=== PATIENT | male | born 1955 | race Caucasian/White ===

== ENCOUNTER 2020-02-24 20:14 | Inpatient (IN) | payer OTHER ==
[~2020-02-24] VITALS: Ht 188 cm; Wt 152.5 kg
[2020-02-24 20:43] LABS: Basophils # (auto) 0.1 10 ^3/uL (0-0.2); Basophils % (auto) 0.7 % (0.0-2.0); Eosinophils # (auto) 0 10 ^3/uL (0-0.8); Eosinophils % (auto) 0.1 % (0.0-7.0); Hematocrit 33.9 % (41.0-53.0); Hemoglobin 10.8 g/dL (13.5-17.5); Lymphocytes # (auto) 0.8 10 ^3/uL (0.4-5.4); Mean Corpuscular Hgb Conc. 31.8 g/dL (32.0-36.0); Monocytes # (auto) 0.6 10 ^3/uL (0-1.3); Monocytes % (auto) 4.7 % (0.0-12.0); Neutrophils # (auto) 11.7 10 ^3/uL (1.6-8.6); Neutrophils % (auto) 88.5 % (37.0-80.0); Nucleated Red Blood Cells % 0.1 %; Platelet Count (auto) 285 10^3/uL (140-450); Red Blood Cells 3.85 10^6/uL (4.5-5.90); Red Cell Distribution Width 17.2 % (11.8-14.3); White Blood Cell 13.1 10^3/uL (4.4-10.8)
[2020-02-24] MEDS ORDERED: SODIUM CHLORIDE 0.9% 2,000 ML IV ONE (20:45)
[2020-02-24 21:02] LABS: Albumin 1.8 g/dL (3.4-5.0); Calcium 8.1 mg/dL (8.5-10.1); Magnesium 1.5 mg/dL (1.6-2.6)
[2020-02-24 21:03] LABS: INR 1.18 (0.9-1.15); Partial Thromboplastin Time 29.1 sec (23.64-32.05)
[2020-02-24 21:06] LABS: BUN/Creatinine Ratio 27.8; Bilirubin, Total 0.3 mg/dL (0.2-1.0)
[2020-02-24] MEDS ORDERED: InsuLIN REG 1unit/0.01ml Soln (100units/ml) IV ONE ×2 (22:45→23:30)
[2020-02-24 23:02] LABS: Urine Amorphous Crystal FEW /hpf (None Seen); Urine Bacteria FEW /hpf (None Seen); Urine Blood 2+ /uL (Negative); Urine Hyaline Cast MANY /lpf (0 - 2); Urine Mucus FEW (None Seen); Urine Specific Gravity 1.013 (1.001-1.035); Urine WBC 3 /hpf (0 - 3)
[2020-02-24] MEDS ORDERED: AZITHROMYCIN 500MG/ 250ML 250 ML IV ONE (23:15)
[2020-02-24] MEDS: MAGNESIUM SULFATE 1GM/100ML 100 ML IV SCH ×2 (23:22→23:45)
[2020-02-24] MEDS ORDERED: SODIUM CHLORIDE 0.9% 1,000 ML IV SCH (23:54)
[2020-02-25] MEDS ORDERED: NITROGLYCERIN 0.4 MG SL TAB SL PRN
[2020-02-25] MEDS ORDERED: MORPHINE SULF INJ 2 MG/ML SYRINGE 1ML IV PRN
[2020-02-25] MEDS ORDERED: ACETAMINOPHEN 500 MG TAB PO PRN
[2020-02-25 01:00] VITALS: BP 148/87
--- NOTE | 2020-02-25 01:00 | NUR ---
Telemetry admit from ER BL[facility]DR[facility] admitted to Telemetry unit. Patient oriented to JOSE ANGEL LOPEZ RN primary RN, unit, room, bed, and unit policies regarding patient care and visiting hours. Patient now on continuous telemetry monitoring, tele box # 3 and telemetry reading on arrival to unit is SINUS TACHYCARDIA AT 109 BEATS PER MINUTE. Patient placed on bedside oxygen AT 2 LITERS VIA NASAL CANNULA, weighed by bedscale and encouraged to call if they need something. All questions and concerns addressed, patient verbalized understanding. Bed in lowest locked position, side rails up x2, call light within reach. monitor car operator on patient with all leads and connections verified in the correct position. Instructed on POC and to call for assist PRN, will continue to monitor for changes Q1hr and PRN. COVID [address] Will use correct PPE throughout shift.
[2020-02-25 01:08] VITALS: BP 154/77
[2020-02-25] MEDS: InsuLIN REG 1unit/0.01ml Soln (100units/ml) SC SCH ×4 (01:09→12:16)
--- NOTE | 2020-02-25 01:35 | NUR ---
Patient unable to recall names and dosages of home medications. 's phone number provided, will attempt to call her later in AM. Will continue care.
--- NOTE | 2020-02-25 01:35 | NUR ---
Wound care photos taken of patient's left medial foot and posterior right ankle. Patient tolerated well. Wound care forms filled out and placed in box for wound care nurse. Abdominal pads placed on left foot wound and wrapped with kerlix. Patient tolerated well. Will continue care. Addendum: 02/25/20 at 0411 by JOSE ANGEL LOPEZ RN RN ADDITION: PER PATIENT HE "SCRAPED [HIS] FOOT AGAINST THE SIDE OF [HIS] WHEELCHAIR A FEW WEEKS AGO".
[2020-02-25] MEDS: MAGNESIUM SULFATE 1GM/100ML 100 ML IV SCH ×3 (02:09→16:50)
[2020-02-25 04:00] VITALS: BP 104/55
[2020-02-25] MEDS: ACCU-CHEK COMFORT CURVE STRIP VI SCH ×6 (05:39→21:55)
[2020-02-25] MEDS ORDERED: ALBUTEROL SULF HFA 90MCG INH 200DOSE IN SCH (06:00)
[2020-02-25 06:28] LABS: Basophils # (auto) 0.1 10 ^3/uL (0-0.2); Basophils % (auto) 0.5 % (0.0-2.0); Eosinophils # (auto) 0 10 ^3/uL (0-0.8); Eosinophils % (auto) 0.2 % (0.0-7.0); Hemoglobin 9.9 g/dL (13.5-17.5); Lymphocytes # (auto) 0.9 10 ^3/uL (0.4-5.4); Lymphocytes % (auto) 7.6 % (10.0-50.0); Mean Corpuscular Hemoglobin 28.3 pg (28.0-32.0); Mean Corpuscular Hgb Conc. 31.8 g/dL (32.0-36.0); Monocytes # (auto) 0.7 10 ^3/uL (0-1.3); Monocytes % (auto) 5.9 % (0.0-12.0); Neutrophils # (auto) 10.6 10 ^3/uL (1.6-8.6); Neutrophils % (auto) 85.8 % (37.0-80.0); Platelet Count (auto) 263 10^3/uL (140-450); Red Blood Cells 3.48 10^6/uL (4.5-5.90); Red Cell Distribution Width 17.2 % (11.8-14.3); White Blood Cell 12.3 10^3/uL (4.4-10.8)
[2020-02-25] MEDS: ALBUTEROL SULF HFA 90MCG INH 200DOSE IN SCH ×2 (06:45→14:20)
--- NOTE | 2020-02-25 06:45 | NUR ---
Respiratory note: UNABLE TO ADMINISTER PT ALBUTEROL (90MCG) MDI TX, DUE TO MED NOT BEING AVAILABLE BY PHARMACY. RN AWARE.
--- NOTE | 2020-02-25 06:45 | NUR ---
No MDI at bedside for patient, RT and pharmacy made aware. Pharmacy checking to see if medication in stock as MDI, if not medication will need to be administered via nebulizer. Pharmacy will call back once they verify if medication is in stock. Will continue care.
[2020-02-25 06:48] LABS: Albumin 1.6 g/dL (3.4-5.0); Calcium 7.7 mg/dL (8.5-10.1); Potassium 3.5 mmol/L (3.5-5.1)
[2020-02-25 06:51] LABS: BUN/Creatinine Ratio 25.6; Bilirubin, Total 0.3 mg/dL (0.2-1.0); Total Protein 7.2 g/dL (6.4-8.2)
--- NOTE | 2020-02-25 07:00 | NUR ---
Kia called, home medications obtained and update provided after password confirmed. Will update chart and continue care.
--- NOTE | 2020-02-25 07:10 | NUR ---
Closing Note Patient lying in bed, eyes closed, respirations even and unlabored, appears asleep. No s/s of distress. Bed in lowest locked position, side rails up x2, call light within reach. Will endorse care to dayshift RN.
[2020-02-25] MEDS ORDERED: INSLISPI (07:21)
[2020-02-25] MEDS ORDERED: INSUINJ2 (07:21)
[2020-02-25] MEDS ORDERED: LISI40TA PO ×2 (07:21→07:28)
[2020-02-25] MEDS ORDERED: ALLO100T PO (07:28)
[2020-02-25] MEDS ORDERED: HYDR25TA4 PO (07:28)
[2020-02-25] MEDS ORDERED: CYCL1TAB18 PO (07:28)
[2020-02-25] MEDS ORDERED: ATOR20TA PO (07:28)
[2020-02-25] MEDS ORDERED: CARB100C3 PO (07:28)
[2020-02-25] MEDS ORDERED: ACET-1156 PO (07:29)
[2020-02-25] MEDS ORDERED: ALBUAER3 IN (07:29)
[2020-02-25] MEDS ORDERED: OMEGCAP2 (07:30)
[2020-02-25] MEDS ORDERED: OMEG500C PO (07:31)
[2020-02-25] MEDS ORDERED: ASCORBIC ACID 1,000 MG TAB PO SCH (10:00)
[2020-02-25] MEDS ORDERED: ENOXAPARIN SOD 40 MG/0.4 ML SYRINGE SC SCH (10:00)
[2020-02-25] MEDS ORDERED: ZINC SULFATE 220mg CAP or TAB PO SCH (10:00)
[2020-02-25] MEDS ORDERED: AZITHROMYCIN 500 MG TAB PO SCH (10:00)
[2020-02-25] MEDS ORDERED: CHOLECALCIFEROL (VITD3) 1,000IU=25mCg TAB PO SCH (10:00)
[2020-02-25] MEDS ORDERED: cefTRIAXone 1GM/50ML D5W 50 ML IV SCH (10:00)
[2020-02-25] MEDS ORDERED: LOSARTAN POTASSIUM 50 MG TAB PO SCH (10:00)
--- NOTE | 2020-02-25 11:20 | NUR ---
WOUND PHOTO: WOUND PHOTOS TAKEN OF MEDIAL, RIGHT, AND LEFT SACRUM WOUNDS. OPTIFOAM DRESSING APPLIED. WOUND PHOTO PAPER LEFT IN CORRECT PLACEMENT.
--- NOTE | 2020-02-25 12:30 | NUR ---
ASSUMED CARE RECEIVED REPORT FROM MARY PINK/GHADA. PATIENT IN BED, WITH C/O SOB, SAT PATIENT UP, SOB RELIEVED. PATIENT DENIES PAIN. WILL CONTINUE TO MONITOR.
--- NOTE | 2020-02-25 12:45 | NUR ---
REPORT GIVEN TO JOESPH SOUZA. PATIENT TRANSFERRED TO ROOM 250A.
--- NOTE | 2020-02-25 14:20 | NUR ---
Respiratory note: 1 PUFFS (90MCG) ALBUTEROL GIVEN VIA MDI WITH CHAMBER, WITH NO ADVERSE EFFECTS NOTED. SPO2 93% RA, HR 111, RR 18, BS CLEAR/DIMINISHED BILATERALLY. WILL CONTINUE TO MONITOR PT. CHARTING COMPLETE FROM OUTSIDE OF ROOM.
--- NOTE | 2020-02-25 14:38 | NUR ---
I spoke with Dr. Leon regarding the plan of care for this patient, I let her know that family is okay with transfer to [facility]. Per Dr. Leon she will place transfer order.
[2020-02-25] MEDS ORDERED: SODIUM CHLORIDE 0.9% 1,000 ML IV SCH (14:45)
[2020-02-25] MEDS ORDERED: hydrALAZINE HCL 20 MG/ML VL IV PRN (14:45)
[2020-02-25] MEDS ORDERED: metroNIDAZOLE 500MG/100ML 100 ML IV ONE (14:45)
[2020-02-25] MEDS ORDERED: ALBUTEROL SULF 2.5 MG/0.5ML(0.5%) NEB SOLN NEB PRN (14:45)
[2020-02-25] MEDS ORDERED: IPRATROPIUM BROM 0.5 MG/2.5ML INH SOL NEB PRN (14:45)
[2020-02-25] MEDS ORDERED: DEXTROSE (50%) 50ML SYRG IV PRN ×2 (14:45)
--- NOTE | 2020-02-25 15:01 | NUR ---
1500 02/25/20 I faxed transfer order and Notice Regarding Post Stabilization to [facility]-document scanned into [employer]. I also faxed negative COVID-19 test result to [facility].
--- NOTE | 2020-02-25 16:44 | NUR ---
1640 02/25/20 I contacted [facility] and spoke with payment analyst Shannan. Per Shannan she did receive the transfer order and negative COVID-19 test result, she will have correctional case manager Ana work on the transfer and will call nurse's station when a bed becomes available.
--- NOTE | 2020-02-25 16:47 | NUR ---
assessment Patient is a 64 year old male. Per patients Farnaz prior to admission patient lived home with her and functioned with her assistance. Patient has a wheelchair for home use. Patients PCP is Dr Enriquez. Per Kia she called 911 due to patient not eating and having a fever. Patients Covid 19 is negative. Patient and Farnaz agree to transfer to [place]. If patient does not transfer he will need home health for PT and a fww. Kia verbalized understanding and agreed to discharge plan of transfer or home with home health. Addendum: 02/25/20 at 1650 by Yasemin WILLIAMSON Amended: Links added.
[2020-02-25 17:00] VITALS: BP 147/73
[2020-02-25] MEDS ORDERED: InsuLIN REG 1unit/0.01ml Soln (100units/ml) SC SCH ×2 (17:00→22:00)
--- NOTE | 2020-02-25 17:00 | NUR ---
PATIENT C/O PAIN PATIENT C/O PAIN 6/10, WITHOUT PAIN MEDICATION WITH MODERATE SCALE ON BOARD. CALLED HOSPITAL LIST FOR OPTIONS.
--- NOTE | 2020-02-25 17:13 | NUR ---
MEDICATION ORDERED DIRECTOR OF [facility] C[facility] ORDERED 50MG ULTRAM Q6H/PRN. WILL CONTINUE TO MONITOR.
[2020-02-25] MEDS ORDERED: traMADol HCL 50 MG TAB PO PRN (17:15)
--- NOTE | 2020-02-25 17:26 | NUR ---
[facility] CASE MANAGEMENT [facility], CASE MANAGEMENT FROM [facility] FOLLOWING UP WITH PATIENTS LABS, MEDICATIONS, AND PLANNING FOR TRANSFER. TRANSFERRING THIS AFTERNOON TO EARLY EVENING.
[2020-02-25 18:07] LABS: % Iron Saturation 6.7 % (20-55)
--- NOTE | 2020-02-25 18:18 | NUR ---
WOUND CARE NOTE: IN TO SEE PATIENT AT THIS TIME FOR WOUNDS FOUND UPON ADMISSION. WOUND PHOTOS AND WOUND CONSULT PLACED AT THAT TIME BY BEDSIDE NURSE FOR REFERENCE. PATIENT IS SHORTLY BEING TRANSFERRED TO [place] FOR INSURANCE PURPOSES PER BEDSIDE NURSE. Addendum: 02/25/20 at 1820 by Evelyn Schwab RN Amended: Links added.
--- NOTE | 2020-02-25 20:08 | NUR ---
Opening Shift Note Assumed care of patient after receiving report from Cecile, RN. Patient awake and alert. No S/S of distress/SOB or pain. Call light within reach with bed in lowest position x2 side rails. Instructed on POC and to call for assist PRN, will continue to monitor for changes Q1hr and PRN.
--- NOTE | 2020-02-25 20:10 | NUR ---
Respiratory note: PT ASSESSED FOR PRN MED NEB TX. HR 99, RR 18, PO2 96% ON RA. NO SIGNS OF ANY RESPIRATORY DISTRESS NOTED. ADVISED PT TO CALL IF TX IS NEEDED.
--- NOTE | 2020-02-25 20:28 | NUR ---
Transfer info Spoke with [facility] regarding transfer to [facility]. Accepting doctor is Dr. Charu Dominguez, room 324. Report to be given at [phone]. cage/vault supervisor time is scheduled for 2200.
--- NOTE | 2020-02-25 21:15 | NUR ---
Elevated BP BP reading of 157/76 and HR of 110. PRN Apresoline for SBP >150 given. Will continue to monitor and reassess.
--- NOTE | 2020-02-25 21:27 | NUR ---
Report given Report given to receiving nurse, Tamika.
--- NOTE | 2020-02-25 21:33 | NUR ---
Family updated Spoke with Kia, of patient, with update on plan of care and plan to transfer patient to [facility].
[2020-02-25 22:00] VITALS: BP 152/68
[2020-02-25] MEDS ORDERED: metroNIDAZOLE 500MG/100ML 100 ML IV SCH (22:00)
[2020-02-25] MEDS ORDERED: PANTOPRAZOLE 40 MG/10 ML VIAL INJ IV SCH (22:00)
[2020-02-25] MEDS ORDERED: PANTOPRAZOLE 40 MG TAB PO SCH (22:00)
--- NOTE | 2020-02-25 22:15 | NUR ---
BP reassessed BP reassessed 139/78 and HR 109. Will continue to monitor.
--- NOTE | 2020-02-25 23:59 | NUR ---
[facility] hot die picker Report given to [facility] at bedside to transfer patient. Tele box removed, cleaned, and sent. ID band removed. Eid emptied with 850 ml of clear yellow urine.
== END 2020-02-25 23:55 | disposition short-term general hospital (02) | DRG 871 ==
LOC: EDBD 20:14 → ER 20:14 → TELE 20:15 → EAST 02-25 01:00 → TELE-EAST 02-25 05:54
PROVIDERS: ADMIT Hospitalist; ATTEND Internal Medicine
DX: A41.9 Sepsis, unspecified organism (principal); N17.0 Acute kidney failure with tubular necrosis; D63.1 Anemia in chronic kidney disease; E11.22 Type 2 diabetes mellitus with diabetic chronic kidney disease; E11.65 Type 2 diabetes mellitus with hyperglycemia; E66.9 Obesity, unspecified; E78.5 Hyperlipidemia, unspecified; E83.42 Hypomagnesemia; I12.9 Hypertensive chronic kidney disease with stage 1 through stage 4 chronic kidney disease, or unspecified chronic kidney disease; Z85.038 Personal history of other malignant neoplasm of large intestine; K52.9 Noninfective gastroenteritis and colitis, unspecified; N18.9 Chronic kidney disease, unspecified; M10.9 Gout, unspecified; Z03.818 Encounter for observation for suspected exposure to other biological agents ruled out
CPT/HCPCS: 36415; 71045; 74176; 76775; 80053; 81001; 82306; 82728; 82962; 83036; 83540; 83550; 83605; 83735; 83880; 83970; 84484; 85025; 85610; 85730; 86141; 87040; 87070; 87086; 87804; 87880; 94640; G0378; J0696; J1815; J3490

== ENCOUNTER 2020-06-15 11:24 | Inpatient (IN) | payer OTHER ==
[~2020-06-15] VITALS: Ht 182.9 cm; Wt 126.0 kg
[~2020-06-15 11:24] MED LIST: ACET-1156 PO; ALBUAER3 IN; ALLO100T PO; ATOR20TA PO; CARB100C3 PO; CYCL10TA6 PO; HYDR25TA4 PO; INSLISPI; INSUINJ2; LISI40TA11 PO; OMEG500C PO
[2020-06-15] MEDS ORDERED: SODIUM CHLORIDE 0.9% 1,000 ML IV ONE ×2 (11:30)
[2020-06-15] MEDS ORDERED: PIPERACILLIN-TAZOB 3.375GM 100 ML IV ONE (12:00)
[2020-06-15 13:31] LABS: Basophils # (auto) 0.1 10 ^3/uL (0-0.2); Basophils % (auto) 0.8 % (0.0-2.0); Eosinophils # (auto) 0.2 10 ^3/uL (0-0.8); Eosinophils % (auto) 1.5 % (0.0-7.0); Hematocrit 37.5 % (41.0-53.0); Lymphocytes # (auto) 2.5 10 ^3/uL (0.4-5.4); Lymphocytes % (auto) 21.6 % (10.0-50.0); Mean Corpuscular Hemoglobin 27.1 pg (28.0-32.0); Mean Corpuscular Hgb Conc. 32.1 g/dL (32.0-36.0); Mean Corpuscular Volume 84.2 fL (80.0-100.0); Monocytes # (auto) 0.7 10 ^3/uL (0-1.3); Neutrophils % (auto) 70.1 % (37.0-80.0); Nucleated Red Blood Cells % 0.1 %; Platelet Count (auto) 279 10^3/uL (140-450); Red Blood Cells 4.45 10^6/uL (4.5-5.90); Red Cell Distribution Width 16.8 % (11.8-14.3); White Blood Cell 11.5 10^3/uL (4.4-10.8)
[2020-06-15 13:46] LABS: INR 1.08 (0.9-1.15); Partial Thromboplastin Time 27.2 sec (23.0-31.2)
[2020-06-15 13:51] LABS: Albumin 2.6 g/dL (3.4-5.0); Calcium 8.7 mg/dL (8.5-10.1)
[2020-06-15 13:54] LABS: Lactic Acid w/Reflex 2.8 mmol/L (0.4-2.0)
[2020-06-15 13:56] LABS: BUN/Creatinine Ratio 15.1; Bilirubin, Total 0.2 mg/dL (0.2-1.0); Total Protein 7.9 g/dL (6.4-8.2)
[2020-06-15] MEDS ORDERED: SOD CHL 0.9%/ KCL 40MEQ 1,000 ML IV ONE (14:15)
[2020-06-15 14:16] LABS: Potassium 2.8 mmol/L (3.5-5.1)
[2020-06-15] MEDS ORDERED: ENOXAPARIN SOD 150 MG/1 ML SYRINGE SC ONE (15:00)
[2020-06-15] MEDS ORDERED: NITROGLYCERIN 0.4 MG SL TAB SL PRN (15:15)
[2020-06-15] MEDS ORDERED: MORPHINE SULF INJ 2 MG/ML SYRINGE 1ML IV PRN (15:15)
[2020-06-15] MEDS ORDERED: KETOROLAC TROMETH 30 MG/ML 1ML VIAL IV ONE (16:00)
[2020-06-15] MEDS ORDERED: VANCOMYCIN PER PHARMACY 0 MG IV SCH (16:00)
[2020-06-15 16:20] LABS: Urine Bacteria MOD /hpf (None Seen); Urine Blood 2+ /uL (Negative); Urine Mucus FEW (None Seen); Urine Specific Gravity 1.016 (1.001-1.035); Urine WBC 200 /hpf (0 - 3)
[2020-06-15] MEDS ORDERED: VANCOMYCIN 1GM/250ML 250 ML IV SCH (17:00)
[2020-06-15 20:15] VITALS: BP 148/72
--- NOTE | 2020-06-15 20:15 | NUR ---
Telemetry admit from ER [facility] admitted to Telemetry unit after SBAR received. Patient oriented to Dolly saldivar RN, unit, room, bed, and unit policies regarding patient care and visiting hours. Patient now on continuous telemetry monitoring, tele box # 70 and telemetry reading on arrival to unit is SR 95. Patient placed on bedside oxygen, weighed by bed scale and encouraged to call if they need something. All questions and concerns addressed, patient verbalized understanding. Note: Came per gourney, awake, alert x 2-3, placed in the bed comfortably, vital signs checked.
[2020-06-15 21:00] VITALS: BP 148/72
[2020-06-15] MEDS ORDERED: ACETAMINOPHEN 325 MG TAB PO PRN (21:00)
[2020-06-15] MEDS ORDERED: LORazepam 2MG/ML-1ML VIAL IV PRN (21:00)
[2020-06-15] MEDS ORDERED: MORPHINE SULFATE 4 MG/ML SYR/VIAL IV PRN (21:00)
[2020-06-15] MEDS ORDERED: POTASSIUM CHL 20MEQ/100ML 100 ML IV ONE (21:00)
[2020-06-15] MEDS ORDERED: VANCOMYCIN PER PHARMACY 1,000 MG IV SCH (21:00)
[2020-06-15] MEDS ORDERED: FUROSEMIDE 40 MG/4 ML VIAL IV ONE (21:15)
[2020-06-15] MEDS ORDERED: LISINOPRIL 20 MG TAB PO ONE (21:15)
[2020-06-15] MEDS ORDERED: DEXTROSE (50%) 50ML SYRG IV PRN (21:15)
[2020-06-15] MEDS: ATORVASTATIN 20 MG TAB PO SCH (21:50)
[2020-06-15] MEDS: FAMOTIDINE (10MG/ML) 2ML VL IV SCH (22:08)
[2020-06-15] MEDS: SOD CHL 0.9%/ KCL 20MEQ 1,000 ML IV SCH ×2 (22:11→23:23)
[2020-06-15] MEDS: METOPROLOL TARTRATE 25 MG TAB PO SCH (22:11)
[2020-06-15 22:33] LABS: INR 1.11 (0.9-1.15); Partial Thromboplastin Time 34.7 sec (23.0-31.2)
[2020-06-15] MEDS: HYDROCORTISONE SOD SUCC 100 MG/2ML INJ VIAL IV SCH (23:20)
[2020-06-15] MEDS: PIPERACILLIN-TAZOB 3.375GM 100 ML IV SCH (23:21)
[2020-06-15] MEDS: ACCU-CHEK COMFORT CURVE STRIP VI SCH (23:53)
[2020-06-15] MEDS: InsuLIN REG 1unit/0.01ml Soln (100units/ml) SC SCH (23:53)
[2020-06-16 05:00] VITALS: BP 141/73
[2020-06-16] MEDS ORDERED: VANCOMYCIN 1GM/250ML 250 ML IV ONE (05:00)
[2020-06-16] MEDS: HYDROCORTISONE SOD SUCC 100 MG/2ML INJ VIAL IV SCH (05:32)
[2020-06-16] MEDS: ACCU-CHEK COMFORT CURVE STRIP VI SCH ×3 (05:33→18:00)
[2020-06-16] MEDS ORDERED: FUROSEMIDE 40 MG/4 ML VIAL IV SCH (06:00)
[2020-06-16] MEDS: PIPERACILLIN-TAZOB 3.375GM 100 ML IV SCH ×3 (06:05→18:00)
[2020-06-16] MEDS: InsuLIN REG 1unit/0.01ml Soln (100units/ml) SC SCH ×3 (06:08→18:00)
[2020-06-16 06:27] LABS: Basophils # (auto) 0 10 ^3/uL (0-0.2); Basophils % (auto) 0.6 % (0.0-2.0); Eosinophils # (auto) 0.1 10 ^3/uL (0-0.8); Eosinophils % (auto) 1.2 % (0.0-7.0); Hematocrit 30.6 % (41.0-53.0); Hemoglobin 9.9 g/dL (13.5-17.5); Lymphocytes # (auto) 1.5 10 ^3/uL (0.4-5.4); Mean Corpuscular Hemoglobin 27.9 pg (28.0-32.0); Mean Corpuscular Hgb Conc. 32.4 g/dL (32.0-36.0); Monocytes # (auto) 0.4 10 ^3/uL (0-1.3); Neutrophils % (auto) 71.2 % (37.0-80.0); Platelet Count (auto) 200 10^3/uL (140-450); Red Blood Cells 3.56 10^6/uL (4.5-5.90); Red Cell Distribution Width 16.8 % (11.8-14.3)
[2020-06-16 06:34] LABS: INR 1.07 (0.9-1.15); Partial Thromboplastin Time 30.3 sec (23.0-31.2)
[2020-06-16 06:43] LABS: Potassium 3.5 mmol/L (3.5-5.1)
[2020-06-16 06:54] LABS: Albumin 2.2 g/dL (3.4-5.0); BUN/Creatinine Ratio 16.7; Bilirubin, Total 0.4 mg/dL (0.2-1.0); Calcium 7.4 mg/dL (8.5-10.1); Magnesium 1.7 mg/dL (1.6-2.6); Phosphorus 3.7 mg/dL (2.5-4.90); Total Protein 6.6 g/dL (6.4-8.2)
--- NOTE | 2020-06-16 07:43 | NUR ---
Care report given to Yeny Escobar , patient is resting quietly, need someone to talk to for being lonely at time, crying sometimes if telling his story.
--- NOTE | 2020-06-16 07:49 | NUR ---
Told day shift R.n. to swab the nose of the patient for being discharge in the hospital less than 30 days.
[2020-06-16 08:00] VITALS: BP 154/85
[2020-06-16 09:00] VITALS: BP 154/85
[2020-06-16] MEDS: ENOXAPARIN SOD 40 MG/0.4 ML SYRINGE SC SCH (10:06)
[2020-06-16] MEDS: LISINOPRIL 20 MG TAB PO SCH (10:07)
[2020-06-16] MEDS: METOPROLOL TARTRATE 25 MG TAB PO SCH ×2 (10:07→22:06)
[2020-06-16] MEDS: ASPirin 81 mg TAB PO SCH (10:08)
[2020-06-16] MEDS: FAMOTIDINE (10MG/ML) 2ML VL IV SCH ×2 (10:09→22:05)
--- NOTE | 2020-06-16 10:20 | NUR ---
Turned patient to his right side with help fro EVI Martin. Patient tolerated well.
--- NOTE | 2020-06-16 10:24 | NUR ---
WOUND CARE NOTE: Wound care in to see patient per wound care request regarding skin integrity issue that are noted present on admission. Bedside nurse took photograph of patient's skin issue upon admission for reference. Patient is 65 y/o male with admitting diagnosis of Altered Mentation, Acute Metabolic Encephalopathy. Patient is resting in bed in Rm. 284B. Patient is awake, alert and follow direction. He's able to communicate needs. He need assistance in turning and repositioning and his Nate score is 14. Skin assessment done with the assistance of patient's nurse, JOESPH Escobar. Noted patient's left lateral foot has 1.0x2.0cm dry, calloused, scabbed DFU. Surrounding skin is pink, clean and dry,left open to air. Patient's medial sacrum at intragluteal fold has mild moisture associated dermatitis. Ileana care given and applied Z Guard cream. No other wound noted, no pressure injury noted. Repositioned patient for comfort facing his Rt side, redistributed pressure points with pillows and elevated BLE on pillows. Patient tolerated well, nurse's aide at bedside. RECOMMENDATION: Nursing to continue with BID/PRN cleaning and application of Barrier cream to sacral,buttocks and perineum as preventative, frequent turning and repositioning schedule as condition permits, redistribute pressure points with pillows, elevate heels on pillows, continue monitoring by wound care while Nate score is <18. Addendum: 06/16/20 at 1140 by Chelsea Carrasco RN Amended: Links added.
--- NOTE | 2020-06-16 10:30 | NUR ---
Per patient, he has not been in the hospital the last 30days. patient states, "he has not been anywhere"
--- NOTE | 2020-06-16 10:34 | NUR ---
Wound care nurse at bedside.
--- NOTE | 2020-06-16 12:00 | NUR ---
Dr. Leon at bedside.
--- NOTE | 2020-06-16 12:16 | NUR ---
NOK Updated on patient's POC after password was obtained.
--- NOTE | 2020-06-16 15:06 | NUR ---
assessment Patient is a 64 year old male who is confused. Per patients Kia prior to admission patient lived home with her and functioned with her assistance. Patient has a wheelchair for home use. Patients PCP is Dr Enriquez at [facility]. Per Kia she called 911 due to patient being confused and asking for his sister Barby. Kia agrees to transfer to [facility]. If patient does not transfer he will need home health on discharge. I informed Kia of consult about patient living with his mother. Per Kia she is patients for 36 years. Patients mother has been for the past 5 years. I informed Kia that EMS stated the floor was soaked with urine and feces. Kia stated she has an old dog who sometime poops on the floor, but her carpet is not soaked with urine or feces. Kia stated she is more than capable of caring for patient. Kia verbalized understanding and agreed to discharge plan of transfer or home with home health. Addendum: 06/16/20 at 1516 by Yasemin WILLIAMSON Amended: Links added.
[2020-06-16] MEDS ORDERED: MAGNESIUM SULFATE 1GM/100ML 100 ML IV ONE ×2 (15:45→16:00)
[2020-06-16] MEDS ORDERED: IPRATROPIUM BROM 0.5 MG/2.5ML INH SOL NEB PRN (16:00)
[2020-06-16] MEDS: SOD CHL 0.9%/ KCL 20MEQ 1,000 ML IV SCH (16:00)
[2020-06-16] MEDS ORDERED: ALBUTEROL SULF 2.5 MG/0.5ML(0.5%) NEB SOLN NEB PRN (16:00)
[2020-06-16] MEDS ORDERED: VANCOMYCIN 1GM/250ML 250 ML IV SCH (17:00)
[2020-06-16 17:11] VITALS: BP 154/84
--- NOTE | 2020-06-16 18:40 | NUR ---
Bowel Movement No BM on shift.
--- NOTE | 2020-06-16 19:30 | NUR ---
Opening Shift Note Assumed care of patient after receiving report. Patient is awake and alert with no S/S of distress/SOB or pain. Call light within reach, bed in lowest locked position, HOB semi fowlers. Instructed on POC and to call for assist PRN, will continue to monitor for changes Q1hr and PRN.
--- NOTE | 2020-06-16 19:35 | NUR ---
Pt declined PT eval. Will attempt again tomorrow.
--- NOTE | 2020-06-16 19:36 | NUR ---
Respiratory note: PT SEEN AND ASSESSED FOR PRN MED NEB TX AT 1936. TX IS NOT INDICATED AT THIS TIME. PT DENIES ANY RESPIRATORY DISTRESS. HR 74 RR 18 SP02 96% ON 2L NASAL CANNULA.
--- NOTE | 2020-06-16 19:45 | NUR ---
care endorsed to NOC RN
--- NOTE | 2020-06-16 20:14 | NUR ---
MD Rafat at bedside.
[2020-06-16 21:31] VITALS: BP 132/61
[2020-06-16] MEDS: ATORVASTATIN 20 MG TAB PO SCH (22:05)
[2020-06-17] VITALS (7 sets, daily range): BP systolic 142–149; BP diastolic 67–97
[2020-06-17] MEDS: ACCU-CHEK COMFORT CURVE STRIP VI SCH ×4 (00:25→18:04)
[2020-06-17] MEDS: PIPERACILLIN-TAZOB 3.375GM 100 ML IV SCH ×4 (00:25→17:29)
[2020-06-17] MEDS: InsuLIN REG 1unit/0.01ml Soln (100units/ml) SC SCH ×4 (00:28→18:06)
[2020-06-17 05:56] LABS: Basophils # (auto) 0 10 ^3/uL (0-0.2); Basophils % (auto) 0.5 % (0.0-2.0); Eosinophils # (auto) 0.2 10 ^3/uL (0-0.8); Eosinophils % (auto) 2.7 % (0.0-7.0); Hematocrit 29.7 % (41.0-53.0); Hemoglobin 9.7 g/dL (13.5-17.5); Lymphocytes # (auto) 1.5 10 ^3/uL (0.4-5.4); Lymphocytes % (auto) 24.6 % (10.0-50.0); Mean Corpuscular Hemoglobin 28.2 pg (28.0-32.0); Mean Corpuscular Hgb Conc. 32.7 g/dL (32.0-36.0); Mean Corpuscular Volume 86.2 fL (80.0-100.0); Monocytes # (auto) 0.4 10 ^3/uL (0-1.3); Monocytes % (auto) 6.5 % (0.0-12.0); Neutrophils # (auto) 3.9 10 ^3/uL (1.6-8.6); Neutrophils % (auto) 65.7 % (37.0-80.0); Platelet Count (auto) 182 10^3/uL (140-450); Red Blood Cells 3.44 10^6/uL (4.5-5.90); Red Cell Distribution Width 16.8 % (11.8-14.3); White Blood Cell 5.9 10^3/uL (4.4-10.8)
[2020-06-17 06:23] LABS: Potassium 3.1 mmol/L (3.5-5.1)
[2020-06-17 06:33] LABS: BUN/Creatinine Ratio 16.8; Calcium 7.6 mg/dL (8.5-10.1); Magnesium 1.8 mg/dL (1.6-2.6)
--- NOTE | 2020-06-17 07:50 | NUR ---
PRN MN TX NOT INDICATED AT THIS TIME.PT DENIES SOB OR ANY OTHER RESPIRATORY DISTRESS. PT ON 2L/MIN VIA NC. 95% O2 SATS, HR 78 BPM, RR18. NO SOB OR ANY OTHER RESPIRATORY DISTRESS NOTICED.
--- NOTE | 2020-06-17 07:55 | NUR ---
PRN MN TX NOT INDICATED AT THIS TIME, PT IN NO RESPIRATORY DISTRESS. RESPIRATION IS EVEN AND NON LABORED. BS ARE CLEAR TO AUSCULTATION. WILL CONTINUE TO MONITOR PT.
--- NOTE | 2020-06-17 08:05 | NUR ---
Opening Shift Note Assumed care of patient, awake and alertx4. No S/S of distress/SOB or pain. Instructed on POC and to call for assist PRN. Bed at lowest locked position and call light within reach. Will continue to monitor for changes Q1hr and PRN.
--- NOTE | 2020-06-17 08:50 | NUR ---
Dr. Douglass at bedside.
[2020-06-17] MEDS ORDERED: POTASSIUM CHL 20 Meq TABLET PO ONE ×2 (09:00→15:45)
[2020-06-17] MEDS ORDERED: MAGNESIUM SULFATE 1GM/100ML 100 ML IV ONE ×2 (09:00→15:45)
[2020-06-17] MEDS: ASPirin 81 mg TAB PO SCH (09:44)
[2020-06-17] MEDS: FAMOTIDINE (10MG/ML) 2ML VL IV SCH ×2 (09:44→22:31)
[2020-06-17] MEDS ORDERED: FUROSEMIDE 40 MG/4 ML VIAL IV SCH (10:00)
[2020-06-17] MEDS: METOPROLOL TARTRATE 25 MG TAB PO SCH ×3 (10:00→22:24)
--- NOTE | 2020-06-17 11:00 | NUR ---
[facility] received a call from microbiology, stating that they don't have a urine specimen for patient anymore, requesting a new specimen to be collected.
--- NOTE | 2020-06-17 11:28 | NUR ---
Urine specimen collected and sent to lab via [employer] system.
[2020-06-17 11:49] LABS: Urine Bacteria FEW /hpf (None Seen); Urine Blood Negative /uL (Negative); Urine Specific Gravity 1.005 (1.001-1.035); Urine WBC 1 /hpf (0 - 3)
[2020-06-17] MEDS: SOD CHL 0.9%/ KCL 20MEQ 1,000 ML IV SCH (12:00)
[2020-06-17] MEDS: LISINOPRIL 20 MG TAB PO SCH (12:08)
[2020-06-17] MEDS: ENOXAPARIN SOD 40 MG/0.4 ML SYRINGE SC SCH (12:09)
--- NOTE | 2020-06-17 15:32 | NUR ---
EEG COMPLETED AT BEDSIDE. PRIMARY RN FLORENTINO JASON.
[2020-06-17] MEDS ORDERED: MORPHINE SULFATE 4 MG/ML SYR/VIAL IV PRN (15:45)
--- NOTE | 2020-06-17 15:56 | NUR ---
I faxed transfer order to [facility].
--- NOTE | 2020-06-17 19:05 | NUR ---
No bowel movement on shift.
--- NOTE | 2020-06-17 19:28 | NUR ---
closing note Patient is comfortably resting in bed. No c/o pain, no s/s of distress noted/sated. Bed at lowest locked position and call light within reach. Care endorse to JOSEPHINE PINK. Sitter at bedside for safety Addendum: 06/17/20 at 1929 by Julia Leroy RN disregard sitter at bedside for safety.
--- NOTE | 2020-06-17 19:40 | NUR ---
STOOL OCCULT SENT TO LAB
[2020-06-17] MEDS: ATORVASTATIN 20 MG TAB PO SCH (22:22)
[2020-06-17] MEDS: MAGNESIUM OXIDE 400 MG TAB PO SCH (22:32)
[2020-06-18] MEDS: PIPERACILLIN-TAZOB 3.375GM 100 ML IV SCH ×3 (00:10→13:55)
[2020-06-18] MEDS: ACCU-CHEK COMFORT CURVE STRIP VI SCH ×3 (00:11→12:25)
[2020-06-18] MEDS: InsuLIN REG 1unit/0.01ml Soln (100units/ml) SC SCH ×3 (00:21→12:00)
[2020-06-18 05:00] VITALS: BP 157/86
[2020-06-18 05:55] LABS: Hematocrit 30.8 % (41.0-53.0)
[2020-06-18 06:16] LABS: Calcium 7.9 mg/dL (8.5-10.1); Magnesium 2.1 mg/dL (1.6-2.6); Potassium 3.5 mmol/L (3.5-5.1)
[2020-06-18 06:18] LABS: BUN/Creatinine Ratio 15.5
[2020-06-18 08:00] VITALS: BP 157/74
--- NOTE | 2020-06-18 08:08 | NUR ---
NEURO UPDATED DR MOTTA REGARDING PATIENT STATUS. GAVE HIM ATIVAN LAST NIGHT FOR SLEEP. NO NEW ORDERS
--- NOTE | 2020-06-18 08:30 | NUR ---
NEUROLOGY SPOKE WITH DR MOTTA, UPDATED ON POC, STATES PT CAN BE DISCHARGED FROM NEUROLOGY
[2020-06-18 09:00] VITALS: BP 147/71
--- NOTE | 2020-06-18 09:25 | NUR ---
AT BEDSIDE DR SONI AT BEDSIDE, DISCUSSING POC INCLUDING DISCHARGE, CONT CARE
--- NOTE | 2020-06-18 09:50 | NUR ---
LARGE BM PT CLEANED UP AND Z-GUARD BARRIER CREAM APPLIED TO INNER THIGHS AND SCROTUM, RED RASH NOTED, NO OPEN AREAS NOTED, CONT CARE
[2020-06-18] MEDS: MAGNESIUM OXIDE 400 MG TAB PO SCH (10:12)
[2020-06-18] MEDS: ENOXAPARIN SOD 40 MG/0.4 ML SYRINGE SC SCH (10:12)
[2020-06-18] MEDS: ASPirin 81 mg TAB PO SCH (10:12)
[2020-06-18] MEDS: METOPROLOL TARTRATE 25 MG TAB PO SCH (10:12)
[2020-06-18] MEDS: FAMOTIDINE (10MG/ML) 2ML VL IV SCH (10:12)
[2020-06-18] MEDS: LISINOPRIL 20 MG TAB PO SCH (10:13)
--- NOTE | 2020-06-18 11:30 | NUR ---
Pt refused PT tx. He stated he wants to save his knees for going home today. Addendum: 06/18/20 at 1247 by Chester Perez [employer] ARCHITECT Amended: Links added.
[2020-06-18] MEDS ORDERED: LEVO500T21 PO (11:57)
[2020-06-18 12:39] VITALS: BP 145/80
--- NOTE | 2020-06-18 14:31 | NUR ---
I faxed transportation home request to [place].
--- NOTE | 2020-06-18 15:31 | NUR ---
1530 06/18/20 I called [facility] and spoke with [employer] Ana Cristina ([phone])-she received order for transportation home and is working on it. Per Ana Cristina she will contact nurse's station when transportation is arranged-I updated nurse Elizabet on the status of transport home.
[2020-06-18 15:48] VITALS: BP 145/80
[2020-06-18 16:57] VITALS: BP 155/82
--- NOTE | 2020-06-18 17:30 | NUR ---
DISCHARGE Discharge instructions given as ordered. Encourage to follow up with PMD as instructed, patient will follow up with [place]. All questions and concerns addressed. Patient verbalized understanding. Medication reconciliation form completed and copy given to patient. IV removed with catheter intact, pressure dressing applied, live catheter removed, bladder training implemented prior. Telemetry unit returned to ICU. Patient taken via [facility] with all personal belongings, report given to Payal Dsouza. No distress noted at time of departure.
== END 2020-06-18 17:37 | disposition home or self-care (01) | DRG 871 ==
LOC: EDUNIT# 11:24 → ER 11:24 → EDBD 11:24 → TELE 11:25 → TELE-WESTW 20:32
PROVIDERS: ADMIT Hospitalist; ATTEND Internal Medicine
DX: A41.9 Sepsis, unspecified organism (principal); G93.41 Metabolic encephalopathy; I21.A1 Myocardial infarction type 2; J18.9 Pneumonia, unspecified organism; E43 Unspecified severe protein-calorie malnutrition; I50.33 Acute on chronic diastolic (congestive) heart failure; N17.0 Acute kidney failure with tubular necrosis; L03.116 Cellulitis of left lower limb; N30.00 Acute cystitis without hematuria; E87.2 Acidosis; I13.0 Hypertensive heart and chronic kidney disease with heart failure and stage 1 through stage 4 chronic kidney disease, or unspecified chronic kidney disease; L03.115 Cellulitis of right lower limb; F41.9 Anxiety disorder, unspecified; N18.9 Chronic kidney disease, unspecified; E11.22 Type 2 diabetes mellitus with diabetic chronic kidney disease; R65.20 Severe sepsis without septic shock; D64.9 Anemia, unspecified; E86.0 Dehydration; E87.6 Hypokalemia; E66.01 Morbid (severe) obesity due to excess calories; E78.5 Hyperlipidemia, unspecified; H54.8 Legal blindness, as defined in USA; R26.9 Unspecified abnormalities of gait and mobility; F17.200 Nicotine dependence, unspecified, uncomplicated; E11.42 Type 2 diabetes mellitus with diabetic polyneuropathy; E11.319 Type 2 diabetes mellitus with unspecified diabetic retinopathy without macular edema; M62.838 Other muscle spasm; N62 Hypertrophy of breast; Z87.440 Personal history of urinary (tract) infections; Z79.899 Other long term (current) drug therapy; Z79.4 Long term (current) use of insulin; Z74.01 Bed confinement status; Z99.3 Dependence on wheelchair; Z68.37 Body mass index [BMI] 37.0-37.9, adult
CPT/HCPCS: 36415; 70450; 71045; 74176; 80048; 80053; 80061; 80320; 81001; 82270; 82550; 82962; 83036; 83605; 83735; 83880; 84100; 84132; 84484; 85014; 85018; 85025; 85379; 85610; 85730; 86850; 86900; 86901; 87040; 87086; 93005; 93306; 95819; 97163; 99291; G0378; J1815; J1885; J2543; J3480; J3490